=== PATIENT | male | born 1940 | race Caucasian/White ===

== ENCOUNTER 2023-11-02 08:45 | Outpatient (CLI) | payer MEDICARE, SELFPAY ==
--- NOTE | ~2023-11-02 | XR_ITS ---
XR shoulder RT min 2V 11/02/2023 09:18 Indication: Right shoulder pain Procedure: 4 views right shoulder Comparison: No prior studies for comparison. 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 No fracture or traum atic malalignment. No soft tissue abnormality. No foreign bodies. Impression: 1: Moderate osteoarthritis of the right acromioclavicular joint. Reviewed, dictated and finalized at location D. HIATRIC CLINICAL NURSE SPECIALIST Impression: 1: Moderate osteoarthritis of the right acromioclavicular joint.
== END 2023-11-02 08:46 | disposition home or self-care (01) ==
PROVIDERS: PCP Nurse Practitioner; Visit Provider Orthopaedic Surgery
DX: M25.511 Pain in right shoulder (principal); M19.011 Primary osteoarthritis, right shoulder
CPT/HCPCS: 73030

== ENCOUNTER → 2023-11-08 06:54 | Outpatient (CLI) | payer MEDICARE, SELFPAY ==
--- NOTE | ~2023-11-08 | MR_ITS ---
MRI of the right shoulder Technique: Axial proton-density fat-sat images, coronal proton density fat-sat and T2 fat-sat images, and sagittal T1-weighted and T2 fat-sat images were acquired. Clinical History: Pain Findings: There is moderate to severe AC joint degenerative change. Coracoclavicular, coracoacromial, and coracohumeral ligaments appear intact. There is moderate supraspinatus and infraspinatus tendinosis, without partial or full-thickness tear. Subscapularis tendon demonstrates moderate to high-grade tearing of the distal transverse tendon fib ers and distal portion of the tendon. There is perching of the tendon of long head of the biceps on t he medial aspect of the bicipital groove, without complete, jairo dislocation. No labral tear evident. Inferior glenohumeral ligament is intact. Moderate glenohumeral joint effusion is present. There is e xtensive fluid distention of the subacromial/subdeltoid bursa. There is mild fluid distention of the subcoracoid bursa. There is minimal edematous change of the subscapularis muscle belly. Remaining mus culature is otherwise intact. No muscle atrophy evident. There is marrow edema at the greater tuberos ity region of the humerus. Impression: Moderate to high-grade partial tearing of the distal subscapularis tendon and distal transverse ligam ent fibers, with associated perching of the tendon of long head of the biceps on the medial aspect of the bicipital groove. Moderate infraspinatus and supraspinatus tendinosis. Moderate to severe AC joint degenerative change. Moderate glenohumeral joint effusion with subacromial/subdeltoid bursitis and subcoracoid bursitis. Mild marrow edema at the greater tuberosity region of the humerus. Correlate for bone contusion or ot her reactive marrow edema. Reviewed, dictated and finalized at location M. TENDER Impression: Moderate to high-grade partial tearing of the distal subscapularis tendon and d istal transverse ligament fibers, with associated perching of the tendon of shantel g head of the biceps on the medial aspect of the bicipital groove. Moderate infraspinatus and supraspinatus tendinosis. Moderate to severe AC joint degenerative change. Moderate glenohumeral joint effusion with subacromial/subdeltoid bursitis and s ubcoracoid bursitis. Mild marrow edema at the greater tuberosity region of the humerus. Correlate fo r bone contusion or other reactive marrow edema.
== END ==
PROVIDERS: PCP Orthopaedic Surgery; Visit Provider Orthopaedic Surgery
DX: M25.411 Effusion, right shoulder (principal); M19.011 Primary osteoarthritis, right shoulder
CPT/HCPCS: 73221

== ENCOUNTER 2023-11-24 10:06 | Outpatient (RCR) | payer MEDICARE, SELFPAY ==
--- NOTE | 2023-11-24 10:58 | OPREHPOC ---
Outpatient Therapy Plan of Care This is a Multidisciplinary Plan of Care that may contain components documented by all disciplines (PT, OT, and ST.) PT Problem 1 PT Problem #1 Knowledge Deficit PT Goal 1 Goal Patient to demonstrate independence with HEP Target Visit 5 PT Problem 2 PT Problem #2 Pain PT Goal 1 Goal 1. Patient to report highest pain at 2/10 2. Patient to report no sleep disturbance due to pain Target Visit 10 PT Problem 3 PT Problem #3 Impaired Range of Motion PT Goal 1 Goal 1. Patient to demonstrate ability to reach into back pocket with no increase in pain 2. Patient to demonstrate 160 deg of L shoulder flexion to reach into cabinets Target Visit 10 PT Problem 4 PT Problem #4 Impaired Strength PT Goal 1 Goal Patient to demonstrate 5/5 R shoulder strength to return to lifting at PLOF for house hold tasks. Target Visit 10 PT Problem 5 PT Problem #5 Impaired Functional Mobil PT Goal 1 Goal Patient to report ability to dress with no increase in pain Target Visit 10
--- NOTE | 2023-11-24 10:58 | PTOPEVAL1 ---
Assessment and note entered by Yvonne Cesar DPT Evaluation Information Assessment Status Evaluation Diagnosis R shoulder pain Onset 11/16/23 Subjective Information Patient reports he has had R shoulder pain for the past 2 month with no known injury. He reports he has had an MRI that shows a tear in the RTC as well as tendonitis that the MD thinks is causing the pain. He reports he had an injection ~1 weeks ago and since then pain has improved. He reports difficulty with reaching into his back pocket, dressing and sleeping. He is currently retired. Reported Pain Level Pain Score 2: Self Report Assessment PT Clinical Summary Mr. Sandoval is a 83 year old male who presents to PT with R shoulder pain with AC joint arthritis and partial RTC tear. He demonstrates decreased R shoulder AROM, decreased R shoulder strength and tenderness at the R AC joint impairing his abililty to reach into his back pocket, dress, sleep and complete house hold tasks. Plan of Care Interventions Electrical Stimulation,Hot Pack/Cold Pack,Manual Therapy,Neuro Re-education,Patient/Caregiver Educati,Therapeutic Activities,Therapeutic Exercise PT Services Indicated Yes Treatment Frequency and 2x weekly for 10 visits Duration These treatments will address the objective and functional deficits as defined above. The patient will be advanced safely and appropriately in order for the patient to progress towards his/her prior level of function. Additional exercises will be introduced and as well as a comprehensive home exercise program upon discharge, if needed, ?to ensure carryover of functional gains achieved in the clinic. This treatment plan has been reviewed and agreement upon by the patient.
== END 2023-12-27 10:42 | disposition home or self-care (01) ==
LOC: CHSPT 10:06
PROVIDERS: Visit Provider Orthopaedic Surgery
DX: M75.80 Other shoulder lesions, unspecified shoulder (principal); M25.519 Pain in unspecified shoulder; M75.101 Unspecified rotator cuff tear or rupture of right shoulder, not specified as traumatic
CPT/HCPCS: 97110; 97112; 97161